=== PATIENT | female | born 1970 | race Caucasian/White ===

== ENCOUNTER 2021-07-21 10:41 | Emergency (ER) | payer MEDICARE, OTHER ==
[~2021-07-21] VITALS: Ht 170.2 cm; Wt 61.0 kg
[2021-07-21 10:45] VITALS: BP 180/119
== END 2021-07-21 22:09 | disposition left against medical advice (07) ==
LOC: ER 10:42
DX: I10 Essential (primary) hypertension (principal); Z53.21 Procedure and treatment not carried out due to patient leaving prior to being seen by health care provider